=== PATIENT | male | born 1980 | race African-American/Black ===

== ENCOUNTER 2024-08-04 16:39 | Emergency (ER) | payer BC, OTHER ==
[~2024-08-04] VITALS: Ht 175.3 cm; Wt 95.2 kg
[2024-08-04 16:52] VITALS: O2SAT 100
[2024-08-04 16:55] VITALS: BP 131/87; PULSE 97; RESP 16; TEMP 36.9; O2SAT 98
== END 2024-08-04 18:06 | disposition home or self-care (01) ==
LOC: ER 16:56
DX: Z00.8 Encounter for other general examination (principal); Z98.890 Other specified postprocedural states
CPT/HCPCS: 99281